=== PATIENT | female | born 1980 | race Caucasian/White ===

== ENCOUNTER 2023-05-07 09:32 | Outpatient (CLI) | payer OTHER, SELFPAY | END 2023-05-07 09:33 | disposition home or self-care (01) | LOC: LKVREF 09:34 | PROVIDERS: Visit Provider Physician Assistant | DX: Z01.419 Encounter for gynecological examination (general) (routine) without abnormal findings (principal); N92.0 Excessive and frequent menstruation with regular cycle | CPT/HCPCS: 84443 ==

== ENCOUNTER 2023-05-11 15:57 | Outpatient (CLI) | payer OTHER, SELFPAY ==
--- NOTE | 2023-05-11 16:00 | CRLHL7_ITS ---
For Patients: As a result of the Century Cures Act, medical imaging exams and procedure reports are released immediately into your electronic medical record. You may view this report before your referring provider. If you have questions, please contact your health care provider. CLINICAL HISTORY: Excessive frequent menstruation TECHNIQUE: Real time, dyson scale images were acquired of the pelvis using a transabdominal and transvaginal approach. Color Doppler analysis was performed of the ovaries. FINDINGS: Uterus measures 8.3 x 2.5 x 4.6 centimeters. Endometrium measures 7 millimeters. Normal right ovary measuring 2.8 x 1.6 x 1.3 centimeters. Blood flow on color Doppler. Normal left ovary with corpus luteum cyst measuring 2.2 x 2 x 2.3 centimeters normal blood flow on color Doppler. Prominent pelvic vessels. IMPRESSION: 1. 7 millimeter endometrial stripe. Unremarkable ultrasound. Nonspecific prominent pelvic vessels Dictated by Donna Slaughter MD @ 05/13/2023 8:11:45 AM (Electronically Signed)
== END 2023-05-11 15:58 | disposition home or self-care (01) ==
LOC: US 15:57
PROVIDERS: Visit Provider Physician Assistant
DX: N92.0 Excessive and frequent menstruation with regular cycle (principal)
CPT/HCPCS: 76830; 76856

== ENCOUNTER 2023-07-19 15:46 | Outpatient (CLI) | payer OTHER, SELFPAY ==
--- NOTE | 2023-07-19 15:40 | CRLHL7_ITS ---
For Patients: As a result of the Century Cures Act, medical imaging exams and procedure reports are released immediately into your electronic medical record. You may view this report before your referring provider. If you have questions, please contact your health care provider. BILATERAL SCREENING MAMMOGRAM WITH COMPUTER-AIDED DETECTION AND TOMOSYNTHESIS TECHNIQUE: CC and MLO views were obtained. These mammographic images have been obtained using full-field digital technique. These mammographic images were interpreted with the benefit of computer-aided detection. Breast Tomosynthesis was used in this interpretation. COMPARISON FILM: Baseline. FINDINGS: The breasts are heterogeneously dense, which may obscure small masses IMPRESSION: There is no radiographic evidence for malignancy. ASSESSMENT: BI-RADS Category 1: Negative RECOMMENDATION: Routine screening mammogram in 1 year. A lay language report of this examination will be provided to the patient. Mejia Perry M.D. Diagnostic Radiologist [email or web address] Transcribed: 1:16 p.joe blakely/Dictated by: Mejia Perry MD @ 07/20/2023 9:57:00 AM (Electronically Signed)
== END 2023-07-19 15:47 | disposition home or self-care (01) ==
LOC: MAMMO 15:47
PROVIDERS: Visit Provider Registered Nurse
DX: Z12.31 Encounter for screening mammogram for malignant neoplasm of breast (principal); R92.2 Inconclusive mammogram
CPT/HCPCS: 77063; 77067

== ENCOUNTER 2023-09-27 09:09 | Emergency (ER) | payer OTHER, SELFPAY ==
[2023-09-27 09:36] VITALS: BP 102/67; PULSE 84; RESP 18; TEMP 36.9; O2SAT 98; BMI 25.0
--- NOTE | 2023-09-27 09:56 | ED_ITS ---
HPI - Seizure General Date Seen: 09/27/23 Chief Complaint: Seizure Stated Complaint: Seizure last night, L arm pain Time Seen by Provider: 09/27/23 09:54 Source: patient and family () Mode of arrival: ambulatory Limitations: no limitations History of Present Illness HPI Narrative: Patient is a 42-year-old female presenting for left shoulder pain. She states last night around 00:30 she had the seizure causing her to hurt her left shoulder. This is her 1st seizure since she had 1 in 2nd grade. Other than that no seizure history. She states she got up from bed and was feeling dizzy have while she was walking to the bathroom the symptoms continued. She sat down and she felt like she was get the vomit. Next thing she knew she was on the ground. She states her said she had a seizure and she was incontinent of urine Related Data Home Medications Medication Instructions Recorded Confirmed multivitamin (Daily Multi-Vitamin 1 tab PO QAM 05/07/23 05/19/23 tablet) Allergies Allergy/AdvReac Type Severity Reaction Status Date / Time No Known Allergies Allergy Verified 06/15/23 09:14 [facility] Medical History Cough ?R05.9 - Cough, unspecified (ICD-10) Seizures ?R56.9 - Unspecified convulsions (ICD-10) Skin problem ?L98.9 - Disorder of the skin and subcutaneous tissue, unspecified (ICD-10) History of abnormal cervical Papanicolaou smear ?Z87.42 - Personal history of other diseases of the female genital tract (ICD-10) Surgical History History of cholecystectomy ?Z90.49 - Acquired absence of other specified parts of digestive tract (ICD- 10) S/P LASIK surgery of both eyes ?Z98.890 - Other specified postprocedural states (ICD-10) Status post surgical removal of both fallopian tubes ?Z90.79 - Acquired absence of other genital organ(s) (ICD-10) Status post repeat low transverse section ?Z98.891 - History of uterine scar from previous surgery (ICD-10) History of colposcopy with cervical biopsy ?Z98.890 - Other specified postprocedural states (ICD-10) Family History Maternal Grandfather Diabetes Paternal Grandmother Breast cancer Social History Narrative: [id number]-[id number] 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 Bachelor's degree education Nonsmoker Denies alcohol use or illicit drug use No concerns with safety or abuse What is your current living situation?: I presently have a place to live Problems where you live: no known problems In the past 12 months, utilities in danger of being shut off: no In past 12 months, lack of transportation kept you from medical appts, meetings, work, or getting things needed for daily living: no How hard is it for you to pay for the very basics like food, housing, medical care, and heating: not very hard In the past 12 mos, have been you worried that your food would run out before you had money to buy more?: never true In the past 12 mos, the food you bought just didn't last and you didn't have money to buy more?: never true Smoking Status: Never smoker Do you use any of these nicotine containing products: None How often do you have a drink containing alcohol: never How often do you have six or more drinks on one occasion: Never AUDIT-C Alcohol total score: 0 Non-prescribed substance use: denies use How often does anyone, including family, friends and others, physically hurt you : never How often does anyone, including family, friends and others, insult or talk down to you: never How often does anyone, including family, friends and others, threaten you with harm: never How often does anyone, including family, friends and others, scream or curse at you: never Little interest or pleasure in doing things: not at all Feeling down, depressed, or hopeless: not at all service: No Exam Narrative: Exam Narrative: Const: Well-nourished, Well-developed, in mild distress Eyes: PERRL, no conjunctival injection, and symmetrical lids HENT: Atraumatic external nose and ears. Moist mucous membranes. Neck: Symmetric, trachea midline, No thyromegaly. CVS: RRR, No murmurs or gallops. Peripheral pulses 2+ and equal in all extremities RESP: Unlabored respiratory effort. Clear to auscultation bilaterally. GI: Nontender/Nondistended, No rebound or guarding. MSK:Extremities w/o deformity, decreased active range of motion to the left shoulder with increased passive range of motion when compared to the active range of motion. Skin: Warm, Dry. No rashes or lesions. Neuro: Normal Muscle tone, No focal neurological deficits. Psych: Awake, Alert, & Oriented x3. Appropriate mood and affect. Const: Vital Signs, click to edit/add: Vital Signs - 24 hr 09/27/23 09:36 09/27/23 11:19 Temperature 98.5 F Pulse Rate [Pulse Oximeter] 84 70 Respiratory Rate 18 18 Blood Pressure [Ri ght Upper Arm] 102/67 103/67 Pulse Oximetry 98 100 Oxygen Delivery Me thod Room Air Room Air Course Vital Signs Vital signs: Initial Vital Signs Temperature 98.5 F 09/27/23 09:36 Temperature Source Temporal Artery Scan 09/27/23 09:36 Pulse Rate 84 09/27/23 09:36 Pulse Rhythm Regular 09/27/23 09:36 Respiratory Rate 18 09/27/23 09:36 Blood Pressure 102/67 09/27/23 09:36 Blood Pressure Mean 78 09/27/23 09:36 Blood Pressure Position Supine 09/27/23 09:36 Pulse Oximetry 98 09/27/23 09:36 Oxygen Delivery Method Room Air 09/27/23 09:36 Vital Signs Temperature 98.5 F 09/27/23 09:36 Pulse Rate 84 09/27/23 09:36 Respiratory Rate 18 09/27/23 09:36 Blood Pressure 102/67 09/27/23 09:36 Pulse Oximetry 98 09/27/23 09:36 Oxygen Delivery Method Room Air 09/27/23 09:36 Temperature 98.5 F 09/27/23 09:36 Pulse Rate 70 09/27/23 11:19 Respiratory Rate 18 09/27/23 11:19 Blood Pressure 103/67 09/27/23 11:19 Pulse Oximetry 100 09/27/23 11:19 Oxygen Delivery Method Room Air 09/27/23 11:19 MDM - Seizure MDM Narrative Medical decision making narrative: Patient is a 42-year-old female presenting to the emergency department for left shoulder pain and concern for a seizure. She states the seizure happened last night. Based on her 's description it sounds more like syncope but they did say there is jaw clinching so I will talk to Neurology after the workup was done to get their opinion. Were order head CT, CBC, BMP, lactate, magnesium, test. She is complaining about left shoulder. Worse with active range of motion versus passive range of motion. Has a known calcified tendon but states it is worse today. Left shoulder x-ray shows an increased in size of the calcification. This she can follow-up outpatient with Ortho for. Lab work all returned showing no concerning abnormalities. Head CT shows no concerning findings. Vitals were stable throughout her time in the emergency department. I did speak to [facility],, Dr. Thomas, and he states based on my description the jaw clinching is not enough to call it is seizure and this seems more like a vasovagal syncope. This time she does not appear to need neural follow-up. I did do an EKG which showed no concerning abnormalities. He is otherwise doing well we discharged home. She is agreeable with this plan. Lab Data Labs: Lab Results 09/27/23 Range/Units 10:24 WBC 7.93 (4.50-11.00) K/uL RBC 4.21 (4.00-5.20) m/uL Hgb 13.0 (12.0-16.0) gm/dL Hct 39.0 (33.0-51.0) % MCV 93 (80-100) fL MCH 31 (26-34) pg MCHC 33 (32-36) gm/dL RDW Coeff of Kathleen 12.6 (11.5-15.5) % Plt Count 275 (140-440) K/uL Neut % (Auto) 62.4 (42.0-72.0) % Lymph % (Auto) 29.9 (20-44) % [place] % (Auto) 6.4 (0.0-11.0) % Eos % (Auto) 0.9 (0.0-7.0) % Baso % (Auto) 0.3 (0.0-3.0) % Neut # (Auto) 4.95 (1.7-7.0) K/uL Lymph # (Auto) 2.37 (0.90-2.90) K/uL [place] # (Auto) 0.50 (0.00-0.90) K/UL Eos # (Auto) 0.07 (0.00-0.50) K/uL Baso # (Auto) 0.02 (0.00-0.30) K/uL Abs Immat Gran (auto) 0.01 (0.00-0.30) K/uL Imm/Tot Granulo (auto) 0.1 % Sodium 138 (135-149) mmol/L Potassium 3.6 (3.6-5.1) mmol/L Chloride 104 (96-114) mmol/L Carbon Dioxide 24 (20-32) mmol/L Anion Gap 10 (7-15) mEq/L BUN 12 (5-24) mg/dL Creatinine 0.6 (0.5-1.5) mg/dL Estimated Creat Clear 111.03 Estimated GFR 116 ml/min Glucose 106 (60-115) mg/dL Lactate 0.9 (0.5-1.9) mmol/L Calcium 8.9 (8.4-10.6) mg/dL Magnesium 2.2 (1.5-2.6) mg/dL HCG, Qual Negative (Negative) Imaging Data Shoulder x-ray: Radiologist's impression: No acute fracture or malalignment. No significant degenerative changes. No suspicious osseous lesions. Similar appearing bone island in the humeral head. There is a calcific deposit seen at the region of the supraspinatus tendon insertion, increased in size compared to prior examination now measuring approximately 1.5 centimeters in greatest dimension, consistent with calcific tendinitis. The visualized lungs are clear. Dictated by Sohan Suazo MD @ 09/27/2023 11:01:[address] scan - head: Radiologist's impression: Image quality degradation due to motion artifact. Given limitations: 1. No evidence of skull fracture or intracranial hemorrhage. 2. Frothy secretions within the left maxillary and sphenoid sinuses. Finding may relate to sinusitis or sequela of trauma. Please note that all CT scans at this facility use dose modulation, iterative reconstruction, and/or weight-based dosing when appropriate to reduce radiation dose to as low as reasonably achievable. Dictated by Niall Ibarra MD @ 09/27/2023 11:06:39 AM ECG Data Attestation: I personally reviewed and interpreted this ECG as follows: Prior ECG tracings: not available for review Interpretation: Normal sinus rhythm with a rate of 68 beats per minute, normal intervals, normal axis, no ST or T-wave abnormalities Discharge Plan Discharge Clinical Impression: Calcific tendinitis of left shoulder Syncope Qualifiers: Syncope type: unspecified Qualified Code(s): R55 - Syncope and collapse Patient Disposition: Home, Self-Care Condition: Stable Instructions: Syncope (ED) Additional Instructions: Follow-up with orthopedics about your left shoulder pain. Return to emergency department for new or worsening symptoms. At this time I believe he has syncopal episode and not a seizure. If you do have more symptoms he can always return to the emergency department or follow-up with the primary care provider. Prescriptions: No Action multivitamin [Daily Multi-Vitamin] Tablet 1 tab PO QAM Follow Up/Referrals: Provider,Not a Local [Primary Care Provider] - Stand Alone Forms: [employer] Info Instructions
--- NOTE | 2023-09-27 10:05 | CRLHL7_ITS ---
For Patients: As a result of the Century Cures Act, medical imaging exams and procedure reports are released immediately into your electronic medical record. You may view this report before your referring provider. If you have questions, please contact your health care provider. Indication: SHOULDER PAIN Technique: Three views of the left shoulder Comparison: Shoulder radiograph: 03/02/2022 Findings/Impression: No acute fracture or malalignment. No significant degenerative changes. No suspicious osseous lesions. Similar appearing bone island in the humeral head. There is a calcific deposit seen at the region of the supraspinatus tendon insertion, increased in size compared to prior examination now measuring approximately 1.5 centimeters in greatest dimension, consistent with calcific tendinitis. The visualized lungs are clear. Dictated by Sohan Suazo MD @ 09/27/2023 11:01:46 AM (Electronically Signed)
--- OUTSIDE RECORDS SUMMARY | 2023-09-27 10:24 | XMS_ITS | Referral Summary ---
Author Name Unknown Organization [facility] Address [address] [place] [id number] Care Team Providers Care Filing Or Registry Clerk Name Role Phone Leo Javier MD Primary Care Provider Unavail able Allergies No known active allergies Medications Medication Sig Dispensed Refills Start Date End Date Status Vit-Fe Fumarate-FA ( MULTIVITAMIN PLUS IRON) 27-0.8 MG TABS Take 1 tablet by mouth daily 0 Active ferrous sulfate (IRON) 325 (65 Fe) MG tabletIndications:Post anemia Take 1 tablet (325 mg) by mouth daily (with breakfast) 100 tablet 1 06/09/2018 Active ibuprofen (ADVIL/MOTRIN) 800 MG tabletIndications: , delivered Take 1 tablet (800 mg) by mouth every 8 hours as needed for other (cramping) 90 tablet 0 06/09/2018 Active Active Problems Problem Noted Date Diagnosed Date anemia 06/08/2018 , delivered 06/07/2018 Resolved Problems Problem Noted Date Diagnosed Date Resolved Date Indication for care in labor or delivery 06/07/2018 06/08/2018 Postoperative anemia 10/22/2015 018 Labor and delivery indicatio n for care or intervention 10/20/2015 06/08/2018 delivery delivered 10/20/2015 06/08/2018 Immunizations Name Administration Dates Next Due HPV Quadrivalent 09/06/2007,05/06/2007, 7 Influenza Vaccine >6 months,quad, PF 10/05/2016, 06/28/2015,10/05/2014 Influenza, seasonal, injectable, PF 10/11/2012,1 TDAP Vaccine (Adacel) 03/02/2006 TDAP Vaccine (Boostrix) 03/25/2018,09/01/2015 Tdap (Adult) Unspecified Formulation 10/05/2014 Social History Tobacco Use Types Packs/Day Years Used Date Smoking Tobacco: Never Smokeless Tobacco: Never Alcohol Use Standard Drinks/Week Comments No 0 (1 standard drink = 0.6 oz pur e alcohol) Sex and Gender Information Value Date Recorded Sex Assigned at Not on file Gender Identity Not on file Sexual Orientation Not on file Last Filed Vital Signs Vital Sign Reading Time Taken Comments Blood Pressure 106/66 06/09/2018 7:00 AM CDT Pulse 76 06/09/2018 12:00 AM CDT Temperature 36.4 ??C (97.5 ??F) 06/09/2018 7:00 AM CD T Respiratory Rate 18 06/09/2018 12:00 AM CDT Oxygen Saturation 99% 10/21/2015 1:00 PM HAND STAPLER Inhaled Oxygen Concentration - - Weight 75.8 kg (167 lb) 10/20/2015 1:36 PM HAND STAPLER Height 165.1 cm (5' 5) 10/20/2015 1:36 PM HAND STAPLER Body Mass Index 27.79 10/20/2015 1:36 PM HAND STAPLER Plan of Treatment Not on file Care Teams Filing Or Registry Clerk Relationship Specialty Start Date End Date Leo Javier MD PCP - General survey data technician 05/21/18
--- OUTSIDE RECORDS SUMMARY | 2023-09-27 10:24 | XMS_ITS | Encounter Summary ---
Author Name Unknown Organization [facility] Address [address] [place] [address] Care Team Providers Care Kettle Firer Name Role Phone Leo Javier MD Primary Care Provider Unavail able Encounter Details Date Type Department Care Team (Late st Contact Info) Description 05/29/2018 Orders Only [facility] [address] [place] [address] Leo Javier MD Pre-operative laboratory examination (Primary Dx) Social History Tobacco Use Types Packs/Day Years Used Date Smoking Tobacco: Never Smokeless Tobacco: Never Alcohol Use Standard Drinks/Week Comments No 0 (1 standard drink = 0.6 oz pur e alcohol) Comments Yes Sex and Gender Information Value Date Recorded Sex Assigned at Not on file Gender Identity Not on file Sexual Orientation Not on file documented as of this encounter Plan of Treatment Not on file documented as of this encounter Visit Diagnoses Diagnosis Pre-operative laboratory examination- Primary Pre-procedural laboratory examination documented in this encounter Care Teams Kettle Firer Relationship Specialty Start Date End Date Leo Javier MD PCP - General welder production line arc 05/21/18 documented as of this encounter
--- OUTSIDE RECORDS SUMMARY | 2023-09-27 10:24 | XMS_ITS | Clinical Summary ---
Author Name Unknown Organization [facility] Address [address] [place] [address] Care Team Providers Care Electric Motor Mechanic Name Role Phone Leo Javier MD Primary [...] (Boostrix) 03/25/2018,09/01/2015 Tdap (Adult) Unspecified Formulation 10/05/2014 Family History Medical History Relation Comments Heart Surgery Paternal Grandfather Relation Status Comments Paternal Grandfather Social History Tobacco Use Types Packs/Day Years [...] CDT Oxygen Saturation 99% 10/21/2015 1:00 PM RESTRICTIVE PREPARATION OPERATOR Inhaled Oxygen Concentration - - Weight 75.8 kg (167 lb) 10/20/2015 1:36 PM RESTRICTIVE PREPARATION OPERATOR Height 165.1 cm (5' 5) 10/20/2015 1:36 PM RESTRICTIVE PREPARATION OPERATOR Body Mass Index 27.79 10/20/2015 1:36 PM RESTRICTIVE PREPARATION OPERATOR Plan of Treatment Not on file Care Teams Electric Motor Mechanic Relationship Specialty Start Date End Date Leo Javier MD PCP - General rn eligibility 05/21/18
--- OUTSIDE RECORDS SUMMARY | 2023-09-27 10:24 | XMS_ITS | Clinical Summary ---
Author Name Unknown Organization [facility] Address [address] [place] [address] Care Team Providers Care Bulb Weeder Name Role Phone Keshia Ulrich APRN, CNP Primary Care Provid er Source Comments You are receiving this document as you are listed as the primary care provider,follow-up provider, or the patient has been referred to you for consultation.This is in compliance with the Medicare and[facility] Cent[facility]aid EHR Incentive Program,which states Providers who transition their patient to another setting of careor provider of care or refers their patient to another provider of care shouldprovide summary care record for each transition of care or referral. [facility] Allergies No known active allergies Medications Medication Sig Dispensed Refills Start Date End Date Status vitamin-ferrous fumarate-folic acid (PRENATALPLUS) 27-1 MG tablet Take 1 Tab by mouth daily. 0 Active ferrous sulfate 325 (65 Fe) MG tablet Take 325 mg by mouth. 0 06/09/2018 Active Active Problems Problem Noted Date Diagnosed Date Hirsutism 03/24/2015 Benign neoplasm of skin 05/18/2010 Overview: Nevus Skin Resolved Problems Problem Noted Date Diagnosed Date Resolved Date Previous delivery a ffecting , antepartum 03/25/2018 07/22/2018 , supervision, high-risk 12/31/2017 07/22/2018 AMA (advanced maternal age) multigravida 35+ 8 07/22/2018 Anemia during in first trimester 11/08/2017 03/25/2018 Encounter for supervision of normal first in third trimester 08/04/2015 11/06/2017 Immunizations Name Administration Dates Next Due 4vHPV (Gardasil) 09/06/2007,05/06/2007, 7 Flu Vac Preserv Free (3+yrs) 10/11/2012,06/29/20 10 Influenza IIV4 (Quadrivalent) 0.5mL (26478) 09/17,06/28/2015,10/05/2014 TDAP (ADACEL) 03/02/2006 TDAP (BOOSTRIX) 09/01/2015 Td 10/05/2014 Tdap 03/25/2018 Family History Medical History Relation Name Comments Cancer Father prostate Hypertension Father Diabetes Maternal Grandfather Hypertension Maternal Grandfather Heart Disease Maternal Grandmother Hypertension Maternal Grandmother Osteoporosis Maternal Grandmother Cancer Paternal Grandfather throat Heart Disease Paternal Grandfather Heart Failure Paternal Grandfather Stroke Paternal Grandfather Cancer, Breast Paternal Grandmother Heart Disease Paternal Grandmother Hypertension Paternal Grandmother Amblyopia/Strabismus Negative Family History Cataract Negative Family History Glaucoma Negative Family History Macular Degeneration Negative Family History Retinal Detachment Negative Family History Relation Name Status Comments Father Alive Mother Alive Brother Alive Maternal Grandfather Alive Maternal Grandmother Alive Paternal Grandfather Paternal Grandmother Alive Social History Tobacco Use Types Packs/Day Years Used Date Smoking Tobacco: Never Smokeless Tobacco: Never Alcohol Use Standard Drinks/Week Comments No 0 (1 standard drink = 0.6 oz pur e alcohol) Depression Answer Date Recor ded Last EPDS Total Score 1 04/03/2020 Last EPDS Self Harm Result 0-->never 04/03 Sex and Gender Information Value Date Recorded Sex Assigned at Not on file Gender Identity Not on file Sexual Orientation Not on file Last Filed Vital Signs Vital Sign Reading Time Taken Comments Blood Pressure 102/60 07/22/2018 11:31 AM TESTER PRINTED CIRCUIT BOARDS Pulse 68 07/22/2018 11:31 AM TESTER PRINTED CIRCUIT BOARDS Temperature 36.9 ??C (98.5 ??F) 05/31/2018 9:38 AM CD T Respiratory Rate 16 07/18/2013 6:56 AM CDT Oxygen Saturation 98% 07/18/2013 6:56 AM CDT Inhaled Oxygen Concentration - - Weight 63 kg (139 lb) 07/22/2018 11:31 AM TESTER PRINTED CIRCUIT BOARDS Height 165.1 cm (5' 5) 05/31/2018 9:38 AM CDT Body Mass Index 23.13 05/31/2018 9:38 AM CDT Plan of Treatment Health Maintenance Due Date Last Done Comments Hep C Screening (Preventive Services) 1981 HepB (1) 1981 COVID-19 Vaccine (#1) 04/28/1982 Cervical Cancer Screening 10/05/20192016, 10/05/2014, 10/11/2012, Additional history exists Adult Preventive Visit 10/19/2019 10/19/2017, 2016 Influenza (#1) 2023 10/05/2016, 06/17, 10/05/2014, Additional history exists DTaP/Tdap/Td (5 - Tdap) 03/25/2028 03/25/20 18, 09/01/2015, 10/05/2014, Additional history exists Zoster/Shingles (1 of 2) 2031 HPV Vaccine Completed 09/06/2007, 04/18, 03/07/2007 HIV Screening (Preventive Services) Completed 11/06/2017, 03/24/2015 HepA Aged Out No longer eligi ble based on patient's age to complete this topic Hib Aged Out No longer eligi ble based on patient's age to complete this topic IPV (Polio) Aged Out No longer eligi ble based on patient's age to complete this topic MCV4 Aged Out No longer eligi ble based on patient's age to complete this topic Pneumococcal Aged Out No longer eligi ble based on patient's age to complete this topic Care Teams Bulb Weeder Relationship Specialty Start Date End Date Keshia Ulrich, ANALYST BUSINESS ANALYSIS, FRONT OFFICE SPEC [id number] [place] [address] PCP - General 10/05/14
--- OUTSIDE RECORDS SUMMARY | 2023-09-27 10:24 | XMS_ITS | Encounter Summary ---
Author Name Unknown Organization [facility] Address [address] [place] [address] Care Team Providers Care Land Title Examiner Name Role Phone Leo Javier MD Primary Care Provider Unavail able Encounter Details Date Type Department Care Team (Late st Contact Info) Description 06/04/2018 Orders Only [facility] [address] [place] [address] Leo Javier MD Pre-operative laboratory examination (Primary [...] examination documented in this encounter Care Teams Land Title Examiner Relationship Specialty Start Date End Date Leo Javier MD PCP - General arch support technician 05/21/18 documented as of this encounter
[2023-09-27 10:28] LABS: Lactate* 0.9 mmol/L (0.5-1.9)
--- NOTE | 2023-09-27 10:32 | CRLHL7_ITS ---
For Patients: As a result of the Century Cures Act, medical imaging exams and procedure reports are released immediately into your electronic medical record. You may view this report before your referring provider. If you have questions, please contact your health care provider. INDICATION: FELL AND HIT HEAD LAST NIGHT, POSSIBLE SEIZURE? TECHNIQUE: CT head without contrast. COMPARISON: None. FINDINGS: Image quality degradation due to motion artifact. CSF spaces: Within normal limits for age. Brain parenchyma and extra-axial spaces: The dyson-white differentiation is normal. No sign of mass effect, hemorrhage, or midline shift. No extra-axial fluid collection. Skull base and calvarium: Frothy secretions within the left maxillary and sphenoid sinuses. The visualized orbits are grossly unremarkable. No skull fractures. IMPRESSION: Image quality degradation due to motion artifact. Given limitations: 1. No evidence of skull fracture or intracranial hemorrhage. 2. Frothy secretions within the left maxillary and sphenoid sinuses. Finding may relate to sinusitis or sequela of trauma. Please note that all CT scans at this facility use dose modulation, iterative reconstruction, and/or weight-based dosing when appropriate to reduce radiation dose to as low as reasonably achievable. Dictated by Niall Ibarra MD @ 09/27/2023 11:06:39 AM (Electronically Signed)
[2023-09-27 10:45] LABS: Basophils Absolute Auto 0.02 K/uL (0.00-0.30); Basophils Percent Auto 0.3 % (0.0-3.0); Eosinophils Absolute Auto 0.07 K/uL (0.00-0.50); Eosinophils Percent Auto 0.9 % (0.0-7.0); Immature Granulocytes Abs Auto 0.01 K/uL (0.00-0.30); Immature Granulocytes Pct Auto 0.1 %; Lymphocytes Absolute Auto 2.37 K/uL (0.90-2.90); Lymphocytes Percent Auto 29.9 % (20-44); Mean Corpuscular HGB Conc 33 gm/dL (32-36); Mean Corpuscular Hemoglobin 31 pg (26-34); Mean Corpuscular Volume 93 fL (80-100); Monocytes Percent Auto 6.4 % (0.0-11.0); Neutrophils Absolute Auto 4.95 K/uL (1.7-7.0); Neutrophils Percent Auto 62.4 % (42.0-72.0); Platelet Count* 275 K/uL (140-440); RDW Coefficient of Variation % 12.6 % (11.5-15.5); Red Blood Count 4.21 m/uL (4.00-5.20); White Blood Count* 7.93 K/uL (4.50-11.00)
[2023-09-27 10:49] LABS: Slide Review Reflex No
[2023-09-27 11:03] LABS: Chloride* 104 mmol/L (96-114); Potassium* 3.6 mmol/L (3.6-5.1); Sodium* 138 mmol/L (135-149)
[2023-09-27 11:05] LABS: Creatinine* 0.6 mg/dL (0.5-1.5); Est. Creatinine Clearance* 111.03; Estimated Glomerular Filt Rate 116 ml/min; HCG Qualitative Serum* Negative (Negative)
[2023-09-27 11:06] LABS: Anion Gap 10 mEq/L (7-15); Blood Urea Nitrogen* 12 mg/dL (5-24); Calcium* 8.9 mg/dL (8.4-10.6); Carbon Dioxide* 24 mmol/L (20-32); Glucose* 106 mg/dL (60-115); Magnesium* 2.2 mg/dL (1.5-2.6)
[2023-09-27 11:19] VITALS: BP 103/67; PULSE 70; RESP 18; O2SAT 100
== END 2023-09-27 12:49 | disposition home or self-care (01) ==
PROVIDERS: Emergency Provider Student in an Organized Health Care Education/Training Program
DX: R55 Syncope and collapse (principal); M75.32 Calcific tendinitis of left shoulder
CPT/HCPCS: 36415; 70450; 73030; 80048; 83605; 83735; 84703; 85025; 93005; 99283; 99284

== ENCOUNTER 2023-10-15 08:19 | Day surgery (SDC) | payer OTHER, SELFPAY ==
--- OUTSIDE RECORDS SUMMARY | 2023-10-15 08:23 | XMS_ITS | Clinical Summary ---
Author Name Unknown Organization [facility] Address [address] [place] [address] Care Team Providers Care Solder Leveler Printed Circuit Boards Name Role Phone Keshia Ulrich APRN, CNP Primary Care Provid er Source Comments You are receiving this document as you are listed as the primary care provider,follow-up provider, or the patient has been referred to you for consultation.This is in compliance with the Medicare and[facility] E[facility]centive [facility],which states Providers who transition their patient to another setting of careor provider of care or refers their patient to another provider of care shouldprovide summary care record for each transition of care or referral. [facility] Allergies No known active allergies Medications Medication [...] (3+yrs) 10/11/2012,06/29/20 10 Influenza IIV4 (Quadrivalent) 0.5mL (10157) 09/17,06/28/2015,10/05/2014 TDAP (ADACEL) 03/02/2006 TDAP (BOOSTRIX) 09/01/2015 [...] Comments Blood Pressure 102/60 07/22/2018 11:31 AM LABORER YARD Pulse 68 07/22/2018 11:31 AM LABORER YARD Temperature 36.9 ??C (98.5 ??F) 05/31/2018 9:38 AM CD T Respiratory Rate 16 07/18/2013 6:56 AM CDT Oxygen Saturation 98% 07/18/2013 6:56 AM CDT Inhaled Oxygen Concentration - - Weight 63 kg (139 lb) 07/22/2018 11:31 AM LABORER YARD Height 165.1 cm (5' 5) 05/31/2018 9:38 [...] age to complete this topic Care Teams Solder Leveler [employer]ed Circuit Boards Relationship Specialty Start Date End Date Keshia Ulrich, HEADING MACHINE OPERATOR, WINDING OPERATOR [id number] [place] [address] PCP - General 10/05/14
--- OUTSIDE RECORDS SUMMARY | 2023-10-15 08:23 | XMS_ITS | Referral Summary ---
Author Name Unknown Organization [facility] Address [address] [place] [address] Care Team Providers Care High School Admissions Representative Name Role Phone Leo Javier MD Primary Care Provider [phone] Allergies No known active allergies Medications Medication [...] CDT Oxygen Saturation 99% 10/21/2015 1:00 PM FLORICULTURE PROFESSOR Inhaled Oxygen Concentration - - Weight 75.8 kg (167 lb) 10/20/2015 1:36 PM FLORICULTURE PROFESSOR Height 165.1 cm (5' 5) 10/20/2015 1:36 PM FLORICULTURE PROFESSOR Body Mass Index 27.79 10/20/2015 1:36 PM FLORICULTURE PROFESSOR Plan of Treatment Not on file Care Teams High School Admissions Representative Relationship Specialty Start Date End Date Leo Javier MD PCP - General cage fighter 05/21/18
--- OUTSIDE RECORDS SUMMARY | 2023-10-15 08:23 | XMS_ITS | Encounter Summary ---
Author Name Unknown Organization [facility] Address [address] [place] [address] Care Team Providers Care Dance Coach Name Role Phone Leo Javier MD Primary Care Provider [phone] Encounter Details Date Type Department Care Team (Late st Contact Info) Description 06/04/2018 Orders Only [facility] [address] [place] [address] Leo Javier MD [address] [facility] [address] [place] [address] Pre-operative laboratory examination (Primary Dx) Social History [...] examination documented in this encounter Care Teams Dance Coach Relationship Specialty Start Date End Date Leo Javier MD PCP - General burnishing machine operator 05/21/18 documented as of this encounter
--- OUTSIDE RECORDS SUMMARY | 2023-10-15 08:23 | XMS_ITS | Encounter Summary ---
Author Name Unknown Organization [facility] Address [address] [place] [address] Care Team Providers Care Consumer Relations Specialist Name Role Phone Leo Javier MD Primary Care Provider [phone] Encounter Details Date Type Department Care Team (Late st Contact Info) Description 05/29/2018 Orders Only [facility] [address] [place] [address] Leo Javier MD [address] [facility] [address] [place] [address] Pre-operative laboratory examination (Primary Dx) Social History [...] examination documented in this encounter Care Teams Consumer Relations Specialist Relationship Specialty Start Date End Date Leo Javier MD PCP - General cad draftsman 05/21/18 documented as of this encounter
--- OUTSIDE RECORDS SUMMARY | 2023-10-15 08:23 | XMS_ITS | Clinical Summary ---
Author Name Unknown Organization [facility] Address [address] [place] [address] Care Team Providers Care Multicultural Manager Name Role Phone Leo Javier MD Primary Care Provider [phone] Allergies No known active allergies Medications Medication [...] CDT Oxygen Saturation 99% 10/21/2015 1:00 PM TELETYPE TECHNICIAN Inhaled Oxygen Concentration - - Weight 75.8 kg (167 lb) 10/20/2015 1:36 PM TELETYPE TECHNICIAN Height 165.1 cm (5' 5) 10/20/2015 1:36 PM TELETYPE TECHNICIAN Body Mass Index 27.79 10/20/2015 1:36 PM TELETYPE TECHNICIAN Plan of Treatment Not on file Care Teams Multicultural Manager Relationship Specialty Start Date End Date Leo Javier MD PCP - General bowl turner 05/21/18
[2023-10-15] MEDS: LACTATED RINGERS 1000 ML 1,000 ML 100 ML IV (08:40)
[2023-10-15] MEDS: SODIUM CHLORIDE 0.9 % (FLUSH) 10 ML SYRINGE IVF (08:40)
[2023-10-15 08:48] VITALS: BP 107/57; PULSE 90; RESP 18; TEMP 36.6; O2SAT 99; BMI 25.1
--- NOTE | 2023-10-15 10:00 | SUR.PREOP ---
Dr. Hassan assessed patient & determined that surgery was not necessary today - procedure has been cancelled.
== END 2023-10-15 10:02 | disposition home or self-care (01) ==
LOC: OR 08:21
PROVIDERS: PCP Physician Assistant Medical; Visit Provider Orthopaedic Surgery Sports Medicine
PROC: (CPT 29805; principal; 2023-10-15 10:15)
DX: Z53.9 Procedure and treatment not carried out, unspecified reason (principal)
CPT/HCPCS: J7120

== ENCOUNTER 2023-11-28 15:45 | Outpatient (RCR) | payer OTHER, SELFPAY | END 2024-02-12 15:21 | disposition home or self-care (01) | PROVIDERS: PCP Physician Assistant Medical; Visit Provider Orthopaedic Surgery Sports Medicine | DX: Z98.890 Other specified postprocedural states (principal); M25.512 Pain in left shoulder; M25.612 Stiffness of left shoulder, not elsewhere classified; Z51.89 Encounter for other specified aftercare | CPT/HCPCS: 97110; 97140; 97161 ==

== ENCOUNTER 2024-07-22 08:57 | Outpatient (CLI) | payer OTHER, SELFPAY ==
--- OUTSIDE RECORDS SUMMARY | 2024-07-22 09:01 | XMS_ITS | Referral Summary ---
Author Organization [facility] Address [address] [place] [address] Care Team Providers Care Clothing Busheler Name Role Phone Leo Javier MD Primary Care Provider [phone] Allergies No known active allergies Medications Vit-Fe Fumarate-FA ( MULTIVITAMIN PLUS IRON) 27-0.8 MG TABS Take 1 tablet by mouth daily Active ferrous sulfate (IRON) 325 (65 Fe) MG tabletIndications : anemia Take 1 tablet (325 mg) by mouth daily (with breakfast) 100 tablet 1 06/09/2018 Active ibuprofen (ADVIL/MOTRIN) 800 MG tabletIndications :, delivered Take 1 tablet (800 mg) by mouth every 8 hours as needed for other (cramping) 90 tablet 06/09/2018 Active Active Problems Problem Noted Date [...] = 0.6 oz pur e alcohol) Comments No Sex and Gender Information Value Date Recorded Sex Assigned at Not on file Legal Sex Female 9:13 AM WEIGH MACHINE OPERATOR Gender Identity Not on file Sexual Orientation Not on file Last Filed Vital Signs Vital Sign Reading Time Taken Comments Blood Pressure 106/66 06/09/2018 7:00 AM CDT Pulse 76 06/09/2018 12:00 AM CDT Temperature 36.4 ??C (97.5 ??F) 06/09/2018 7:00 AM CD T Respiratory Rate 18 06/09/2018 12:00 AM CDT Oxygen Saturation 99% 10/21/2015 1:00 PM WEIGH MACHINE OPERATOR Inhaled Oxygen Concentration - - Weight 75.8 kg (167 lb) 10/20/2015 1:36 PM WEIGH MACHINE OPERATOR Height 165.1 cm (5' 5) 10/20/2015 1:36 PM WEIGH MACHINE OPERATOR Body Mass Index 27.79 10/20/2015 1:36 PM WEIGH MACHINE OPERATOR Plan of Treatment Not on file Care Teams Clothing Busheler Relationship Specialty Start Date End Date Leo Javier MD PCP - General computer repair engineer 05/21/18
--- OUTSIDE RECORDS SUMMARY | 2024-07-22 09:01 | XMS_ITS | Encounter Summary ---
Author Organization [facility] Address [address] [place] [address] Care Team Providers Care Flag Signaler Name Role Phone Leo Javier MD Primary Care Provider [phone] Encounter Details Date Type Department Care Team (Late st Contact Info) Description 06/04/2018 [facility] [address] [place] [address] Leo Javier MD [address] [facility] [address] [place] [address] Pre-operative laboratory examination (Primary Dx) Social History Tobacco Use Types Packs/Day Years Used Date Smoking Tobacco: Never Smokeless Tobacco: Never Alcohol Use Standard Drinks/Week Comments No 0 (1 standard drink = 0.6 oz pur e alcohol) Comments Yes Sex and Gender Information Value Date Recorded Sex Assigned at Not on file Legal Sex Female 9:13 AM DEVELOPMENT SPECIALIST Gender Identity Not on file Sexual Orientation Not on file documented as of this encounter Plan of Treatment Not on file documented as of this encounter Visit Diagnoses Diagnosis Pre-operative laboratory examination- Primary Pre-procedural laboratory examination documented in this encounter Care Teams Flag Signaler Relationship Specialty Start Date End Date Leo Javier MD PCP - General dictating machine typist 05/21/18 documented as of this encounter
--- OUTSIDE RECORDS SUMMARY | 2024-07-22 09:01 | XMS_ITS | Clinical Summary ---
Author Organization [facility] Address [address] [place] [address] Care Team Providers Care Front Services Agent Name Role Phone Leo Javier MD Primary Care Provider [phone] Allergies No known active allergies Medications Vit-Fe [...] on file Legal Sex Female 9:13 AM HOG DRIVER Gender Identity Not on file Sexual Orientation Not on file Last Filed Vital Signs Vital Sign Reading Time Taken Comments Blood Pressure 106/66 06/09/2018 7:00 AM CDT Pulse 76 06/09/2018 12:00 AM CDT Temperature 36.4 ??C (97.5 ??F) 06/09/2018 7:00 AM CD T Respiratory Rate 18 06/09/2018 12:00 AM CDT Oxygen Saturation 99% 10/21/2015 1:00 PM HOG DRIVER Inhaled Oxygen Concentration - - Weight 75.8 kg (167 lb) 10/20/2015 1:36 PM HOG DRIVER Height 165.1 cm (5' 5) 10/20/2015 1:36 PM HOG DRIVER Body Mass Index 27.79 10/20/2015 1:36 PM HOG DRIVER Plan of Treatment Not on file Care Teams Front Services Agent Relationship Specialty Start Date End Date Leo Javier MD PCP - General wire fence erector 05/21/18
--- OUTSIDE RECORDS SUMMARY | 2024-07-22 09:01 | XMS_ITS | Encounter Summary ---
Author Organization [facility] Address [address] [place] [address] Care Team Providers Care Gas Meter Prover Name Role Phone Leo Javier MD Primary Care Provider Encounter Details Date Type Department Care Team (Late st Contact Info) Description 05/29/2018 [facility] [address] [place] [address] Leo Javier MD [address] [facility] [address] [place] [address] Pre-operative laboratory examination (Primary Dx) Social History Tobacco Use Types Packs/Day Years Used Date Smoking Tobacco: Never Smokeless Tobacco: Never Alcohol Use Standard Drinks/Week Comments No 0 (1 standard drink = 0.6 oz pur e alcohol) Comments Yes Sex and Gender Information Value Date Recorded Sex Assigned at Not on file Legal Sex Female 9:13 AM PREMIX OPERATOR CONCENTRATE Gender Identity Not on file Sexual Orientation Not on file documented as of this encounter Plan of Treatment Not on file documented as of this encounter Visit Diagnoses Diagnosis Pre-operative laboratory examination- Primary Pre-procedural laboratory examination documented in this encounter Care Teams Gas Meter Prover Relationship Specialty Start Date End Date Leo Javier MD PCP - General automotive detailer 05/21/18 documented as of this encounter
--- OUTSIDE RECORDS SUMMARY | 2024-07-22 09:01 | XMS_ITS | Clinical Summary ---
Author Organization [facility] Address [address] [place] [address] Care Team Providers Care Consumer Experience Consultant Name Role Phone Keshia Ulrich APRN, CNP Primary Care Provid er Source Comments You are receiving this document as you are listed as the primary care provider,follow-up provider, or the patient has been referred to you for consultation.This is in compliance with the Medicare and[facility] EHR Incentive Program,which states Providers who transition their patient to another setting of careor provider of care or refers their patient to another provider of care shouldprovide summary care record for each transition of care or referral. [facility] Allergies No known active allergies Medications Medication Sig Dispensed Refills Start Date End Date Status vitamin-ferrous fumarate-folic acid (PRENATALPLUS) 27-1 MG tablet Take 1 Tab by mouth daily. Active ferrous sulfate 325 (65 Fe) MG tablet Take 325 mg by mouth. 06/09/2018 Active Active Problems Problem Noted Date Diagnosed Date Hirsutism 03/24/2015 Benign neoplasm of skin 05/18/2010 Overview (05/09/2017): Nevus Skin Resolved Problems Problem Noted Date [...] (3+yrs) 10/11/2012,06/29/20 10 Influenza IIV4 (Quadrivalent) 0.5mL (01018) 09/17,06/28/2015,10/05/2014 TDAP (ADACEL) 03/02/2006 TDAP (BOOSTRIX) 09/01/2015 [...] Comments Blood Pressure 102/60 07/22/2018 11:31 AM YOUTH DEVELOPMENT SPECIALIST Pulse 68 07/22/2018 11:31 AM YOUTH DEVELOPMENT SPECIALIST Temperature 36.9 ??C (98.5 ??F) 05/31/2018 9:38 AM CD T Respiratory Rate 16 07/18/2013 6:56 AM CDT Oxygen Saturation 98% 07/18/2013 6:56 AM CDT Inhaled Oxygen Concentration - - Weight 63 kg (139 lb) 07/22/2018 11:31 AM YOUTH DEVELOPMENT SPECIALIST Height 165.1 cm (5' 5) 05/31/2018 9:38 AM CDT Body Mass Index 23.13 05/31/2018 9:38 AM CDT Plan of Treatment Health Maintenance Due Date Last Done Comments Hep C Screening (Preventive Services) 1981 Mammogram 1981 HepB (1) 2000 Cervical Cancer Screening 10/05/20192016, 10/05/2014, 10/11/2012, Additional history exists Adult Preventive Visit 10/19/2019 10/19/2017, 2016 COVID-19 Vaccine ( season) 2024 Influenza (#1) 2024 10/05/2016, 06/17, 10/05/2014, Additional history exists DTaP/Tdap/Td [...] on patient's age to complete this topic RSV Aged Out No longer eligi ble based on patient's age to complete this topic MCV4 Aged Out No longer eligi ble based on patient's age to complete this topic Pneumococcal Aged Out No longer eligi ble based on patient's age to complete this topic Procedures Procedure Name Priority Date/Time Associated Diagnosis Comments HIV-1 P24 AND HIV-1/HIV-2 ANTIBODIES Routine 11/06/2017 1:51 PM YOUTH DEVELOPMENT SPECIALIST Screening examination for venereal disease ANATOMICAL PATH LIQUID BASED Routine 10/05/2016 4:47 PM YOUTH DEVELOPMENT SPECIALIST from Last 3 Months or Most Recently Relevant to Health Maintenance Results * LAB HIV-1 p24 AND HIV-1/HIV-2 ANTIBODIES (11/06/2017 1:51 PM YOUTH DEVELOPMENT SPECIALIST) HIV-1 p24 Ag and HIV-1/HIV-2 Ab Nonreactive Nonreactive PN SOFT 11/06/2017 1:51 PM YOUTH DEVELOPMENT SPECIALIST 11/06/2017 4:14 PM YOUTH DEVELOPMENT SPECIALIST Narrative PN SOFT - 11/06/2017 5:26 PM YOUTH DEVELOPMENT SPECIALIST Performed at [facility], [address] [place] [address] CLIA number [id number] Sharyn Mcgovern APRN, [facility] LAB_1 Performing Organization Address [facility] de Phone Number PN SOFT [address] [place] [address] * Pap Smear (10/05/2016 4:47 PM YOUTH DEVELOPMENT SPECIALIST) 10/05/2016 4:47 PM YOUTH DEVELOPMENT SPECIALIST Narrative PN SOFT - 10/12/2016 2:13 PM YOUTH DEVELOPMENT SPECIALIST FINAL GYNECOLOGICAL CYTOLOGY REPORT Pathology #: [id number] ?Date Obtained: 10/05/2016 ? Date Received: 10/09/2016 INTERPRETATION/RESULTS: Negative for Intraepithelial Lesion or Malignancy. SPECIMEN ADEQUACY: Satisfactory for Evaluation. ??Endocervical cells/transformation zone component present. Verified on 10/12/2016 ??by SRINATH BROUSSARD(ASCP) (electronic signature) CLINICAL NOTES: ?Abnormal bleeding: No, LMP: 02/02/2015, Menstrual status: None ?Apply, Current form of therapy: None apply LIQUID BASED PAP SMEAR SPECIMEN TYPE: ?ROUTINE CERVICAL PAP TEST PLEASE NOTE: The pap smear is a screening test designed to aid in the detection of cervical cancer and its precursor lesions. It is not a diagnostic procedure and should not be used as the sole means of detecting cervical cancer. Both false-positive and false-negative reports may occur. Performed at [facility], [address] [place] [address] Nuzhat Greer DO LAB_1 PN SOFT [address] [place], [place] [address] from Last 3 Months or Most Recently Relevant to Health Maintenance Care Teams Consumer Experience Consultant Relationship Specialty Start Date End Date Keshia Ulrich APRN, AVIONIC TECHNICIAN [address] [place] [address] PCP - General 10/05/14
--- NOTE | 2024-07-22 09:15 | CRLHL7_ITS ---
For Patients: As a result of the Century Cures Act, medical imaging exams and procedure reports are released immediately into your electronic medical record. You may view this report before your referring provider. If you have questions, please contact your health care provider. BILATERAL SCREENING MAMMOGRAM WITH COMPUTER-AIDED DETECTION AND TOMOSYNTHESIS TECHNIQUE: CC and MLO views were obtained. These mammographic images have been obtained using full-field digital technique. These mammographic images were interpreted with the benefit of computer-aided detection. Breast Tomosynthesis was used in this interpretation. COMPARISON FILM: 07/19/23. FINDINGS: The breasts are heterogeneously dense, which may obscure small masses. IMPRESSION: There is no radiographic evidence for malignancy. ASSESSMENT: BI-RADS Category 1: Negative RECOMMENDATION: Routine screening mammogram in 1 year. A lay language report of this examination will be provided to the patient. Mejia Perry M.D. Diagnostic Radiologist [email or web address] SP/Dictated by: Mejia Perry MD @ 07/28/2024 10:12:00 AM (Electronically Signed)
== END 2024-07-22 08:58 | disposition home or self-care (01) ==
LOC: MAMMO 08:57
PROVIDERS: PCP Physician Assistant Medical; Visit Provider Registered Nurse
DX: Z12.31 Encounter for screening mammogram for malignant neoplasm of breast (principal); R92.333 Mammographic heterogeneous density, bilateral breasts
CPT/HCPCS: 77063; 77067

== ENCOUNTER 2025-06-14 11:20 | Outpatient (CLI) | payer OTHER, SELFPAY | END 2025-06-14 11:21 | disposition home or self-care (01) | LOC: NFLDREF 06-15 10:02 | PROVIDERS: PCP Physician Assistant Medical; Referring Provider Physician Assistant Medical; Visit Provider Nurse Practitioner Family | DX: R50.9 Fever, unspecified (principal); N39.0 Urinary tract infection, site not specified | CPT/HCPCS: 87086 ==

== ENCOUNTER 2025-07-28 18:29 | Outpatient (CLI) | payer OTHER, SELFPAY ==
--- NOTE | 2025-07-28 18:40 | CRLHL7_ITS ---
For Patients: As a result of the Century Cures Act, medical imaging exams and procedure reports are released immediately into your electronic medical record. You may view this report before your referring provider. If you have questions, please contact your health care provider. INDICATION: BILATERAL SCREENING MAMMOGRAM, ASYMPTOMATIC 44 Y/O FEMALE COMPARISON: 07/22/2024, 07/19/2023 TECHNIQUE: Digital mammogram in CC and MLO projections including computer-aided detection (CAD) and tomosynthesis. BREAST COMPOSITION: The breasts are heterogeneously dense, which may obscure small masses. FINDINGS: No suspicious findings. ASSESSMENT: BI-RADS 1 Negative RECOMMENDATION: Annual screening mammogram. A lay language report of this examination will be provided to the patient. Dictated by: Mejia Perry MD @ 07/29/2025 09:56:19 (Electronically Signed)
== END 2025-07-28 18:30 | disposition home or self-care (01) ==
LOC: MAMMO 18:29
PROVIDERS: PCP Physician Assistant Medical; Visit Provider Physician Assistant Medical
DX: Z12.31 Encounter for screening mammogram for malignant neoplasm of breast (principal); R92.333 Mammographic heterogeneous density, bilateral breasts
CPT/HCPCS: 77063; 77067